=== PATIENT | female | born 1955 | race Caucasian/White ===

== ENCOUNTER 2021-03-19 07:57 | Day surgery (SDC) | payer MEDICARE, MEDICAID ==
[2021-03-18 14:20] VITALS: BMI 28.3
[2021-03-19 09:42] LABS: Hemoglobin 15.7 g/dL (12.0-16.0); Platelet Count 293 thou/uL (130-400)
[2021-03-19 09:57] LABS: Anion Gap 12 mmol/L (10-20); BUN (Urea Nitrogen) 13 mg/dL (9.8-20.1); Calc. Creatinine Clearance 91 mL/min (70-130); Calcium 9.6 mg/dL (7.8-10.44); Carbon Dioxide 27 mmol/L (23-31); Chloride 103 mmol/L (98-107); Glucose 113 mg/dL (80-115); Potassium 4.4 mmol/L (3.5-5.1); Sodium 138 mmol/L (136-145)
[2021-03-19] MEDS ORDERED: EPINEPHrine 1 MG/ML AMP ONE (10:14)
[2021-03-19] MEDS ORDERED: Midazolam HCl 2 mg/2 ml Vial ONE (10:17)
[2021-03-19] MEDS ORDERED: Fentanyl 100 MCG/2 ML VIAL ONE (10:17)
[2021-03-19] MEDS ORDERED: Propofol 500 MG/50 ML VIAL ONE (10:18)
[2021-03-19] MEDS ORDERED: Ondansetron PF 4 MG/2 ML Vial ONE (10:21)
[2021-03-19] MEDS ORDERED: Dexamethasone 20 MG/5 ML VIAL ONE (10:21)
[2021-03-19] MEDS ORDERED: PROPOFOL 200 MG/20 ML VIAL ONE (10:21)
[2021-03-19] MEDS ORDERED: Lidocaine 1% PF 5 ML VIAL ONE (10:21)
== END 2021-03-19 13:00 | disposition home or self-care (01) ==
LOC: SDC 07:57
PROVIDERS: ATTEND Specialist
PROC: 0CBV8ZZ Excision of Left Vocal Cord, Via Natural or Artificial Opening Endoscopic (ICD-10-PCS; principal; 2021-03-19)
PROC: 0CBT8ZZ Excision of Right Vocal Cord, Via Natural or Artificial Opening Endoscopic (ICD-10-PCS; 2021-03-19)
PROC: 0BJ08ZZ Inspection of Tracheobronchial Tree, Via Natural or Artificial Opening Endoscopic (ICD-10-PCS; 2021-03-19)
DX: J38.3 Other diseases of vocal cords (principal); J38.4 Edema of larynx; J38.00 Paralysis of vocal cords and larynx, unspecified; E78.5 Hyperlipidemia, unspecified; F17.200 Nicotine dependence, unspecified, uncomplicated; Z89.611 Acquired absence of right leg above knee
CPT/HCPCS: 80048; 85014; 85018; 85049; 93005; 93010; J0171; J1100; J2250; J2405; J2704; J3010